=== PATIENT | male | born 1950 | race Caucasian/White ===

== ENCOUNTER → 2019-04-22 09:17 | Outpatient (CLI) | payer MEDICARE, OTHER, SELFPAY ==
[2019-04-22 10:53] LABS: Creatinine Urine Random 122.7 mg/dL
[2019-04-22 10:55] LABS: Microalbumi Creatinin Ratio Ur 5.7 ug/mg CR (<30); Microalbumin Urine Random 0.7 mg/dL (0-1.6)
[2019-04-22 11:05] LABS: Vitamin D 25 Hydroxy (D3) 39.7 ng/mL (30.0-100.0)
[2019-04-22 11:15] LABS: Hemoglobin A1C% w Est Avg Glu 7.8 % (4.0-6.0)
[2019-04-22 11:26] LABS: BUN Creatinine Ratio 17.5 (6-22); Blood Urea Nitrogen 21 mg/dL (9-20); Calcium 9.6 mg/dL (8.4-10.2); Carbon Dioxide 28 mmol/L (22-32); Chloride 103 mmol/L (98-107); Estimated Glomerular Filt Rate > 60.0 mL/min (>60); Glucose 175 mg/dL (80-110); HEMOLYSIS < 15 (0-50); Potassium 4.2 mmol/L (3.4-5.1); Sodium 138 mmol/L (137-145)
[2019-04-22 11:56] LABS: Prostate Specific Antigen Scrn 0.823 ng/mL (0.1-4.0)
== END ==
PROVIDERS: PCP Student in an Organized Health Care Education/Training Program; Visit Provider Student in an Organized Health Care Education/Training Program
DX: E55.9 Vitamin D deficiency, unspecified (principal); E11.9 Type 2 diabetes mellitus without complications; E78.2 Mixed hyperlipidemia; I10 Essential (primary) hypertension; Z12.5 Encounter for screening for malignant neoplasm of prostate
CPT/HCPCS: 36415; 80048; 82043; 82306; 82570; 83036; G0103

== ENCOUNTER → 2019-10-01 09:23 | Outpatient (CLI) | payer MEDICARE, OTHER, SELFPAY ==
[2019-10-01 11:04] LABS: Hemoglobin A1C% w Est Avg Glu 5.4 % (4.0-6.0)
== END ==
PROVIDERS: PCP Student in an Organized Health Care Education/Training Program; Visit Provider Student in an Organized Health Care Education/Training Program
DX: E11.9 Type 2 diabetes mellitus without complications (principal)
CPT/HCPCS: 36415; 83036

== ENCOUNTER → 2020-05-19 15:11 | Outpatient (CLI) | payer MEDICARE, OTHER, SELFPAY ==
[2020-05-19 16:23] LABS: Hemoglobin A1C% w Est Avg Glu 6.1 % (4.0-6.0)
[2020-05-19 16:52] LABS: Creatinine Urine Random 157.8 mg/dL
[2020-05-19 16:56] LABS: Microalbumi Creatinin Ratio Ur 3.8 ug/mg CR (<30); Microalbumin Urine Random < 0.6 mg/dL (0-1.6)
[2020-05-19 16:58] LABS: BUN Creatinine Ratio 20.6 (6-22); Blood Urea Nitrogen 27 mg/dL (9-20); Carbon Dioxide 23 mmol/L (22-32); Chloride 107 mmol/L (98-107); Estimated Glomerular Filt Rate 54.3 mL/min (>60); Glucose 81 mg/dL (80-110); HEMOLYSIS < 15 (0-50); Potassium 4.5 mmol/L (3.4-5.1); Sodium 140 mmol/L (137-145)
== END ==
PROVIDERS: PCP Student in an Organized Health Care Education/Training Program; Referring Provider Student in an Organized Health Care Education/Training Program; Visit Provider Student in an Organized Health Care Education/Training Program
DX: E11.9 Type 2 diabetes mellitus without complications (principal); E66.01 Morbid (severe) obesity due to excess calories; I10 Essential (primary) hypertension
CPT/HCPCS: 36415; 80048; 82043; 82570; 83036

== ENCOUNTER → 2020-06-16 11:15 | Outpatient (CLI) | payer MEDICARE, OTHER, SELFPAY ==
[2020-06-16 13:08] LABS: Blood Urea Nitrogen 23 mg/dL (9-20); Estimated Glomerular Filt Rate 59.5 mL/min (>60)
== END ==
PROVIDERS: PCP Student in an Organized Health Care Education/Training Program; Referring Provider Student in an Organized Health Care Education/Training Program; Visit Provider Student in an Organized Health Care Education/Training Program
DX: N17.9 Acute kidney failure, unspecified (principal)
CPT/HCPCS: 36415; 82565; 84520

== ENCOUNTER → 2020-08-31 10:22 | Outpatient (CLI) | payer MEDICARE, OTHER, SELFPAY ==
[2020-08-31 12:43] LABS: Hemoglobin A1C% w Est Avg Glu 5.7 % (4.0-6.0)
== END ==
PROVIDERS: PCP Student in an Organized Health Care Education/Training Program; Referring Provider Student in an Organized Health Care Education/Training Program; Visit Provider Student in an Organized Health Care Education/Training Program
DX: E11.9 Type 2 diabetes mellitus without complications (principal)
CPT/HCPCS: 36415; 83036

== ENCOUNTER → 2020-12-13 14:02 | Outpatient (CLI) | payer MEDICARE, OTHER, SELFPAY ==
[2020-12-13 15:10] LABS: Hemoglobin A1C% w Est Avg Glu 7.1 % (4.0-6.0)
[2020-12-13 17:04] LABS: BUN Creatinine Ratio 18.3 (6-22); Blood Urea Nitrogen 23 mg/dL (9-20); Cholesterol 173 mg/dL (140-199); Estimated Glomerular Filt Rate 56.7 mL/min (>60); HDL Cholesterol 57 mg/dL (40-60); LDL Cholesterol Calculated 79 mg/dL (<100); Triglycerides 183 mg/dL (35-150)
== END ==
PROVIDERS: PCP Student in an Organized Health Care Education/Training Program; Referring Provider Student in an Organized Health Care Education/Training Program; Visit Provider Student in an Organized Health Care Education/Training Program
DX: E11.9 Type 2 diabetes mellitus without complications (principal); E78.2 Mixed hyperlipidemia; I10 Essential (primary) hypertension; N18.31 Chronic kidney disease, stage 3a
CPT/HCPCS: 36415; 80061; 82565; 83036; 84520

== ENCOUNTER → 2020-12-24 08:43 | Outpatient (CLI) | payer MEDICARE, OTHER, SELFPAY ==
[2020-12-24] MEDS: COVID-19 VACC #1, MRNA(MOD) 100 MCG/0.5 ML VIAL IM (08:50)
== END ==
PROVIDERS: PCP Student in an Organized Health Care Education/Training Program; Visit Provider Internal Medicine
DX: Z23 Encounter for immunization (principal)
CPT/HCPCS: 0011A; 91301

== ENCOUNTER → 2021-01-21 09:02 | Outpatient (CLI) | payer MEDICARE, OTHER, SELFPAY ==
[2021-01-21] MEDS: COVID-19 VACC #2, MRNA(MOD) 100 MCG/0.5 ML VIAL IM (09:04)
== END ==
PROVIDERS: PCP Student in an Organized Health Care Education/Training Program; Visit Provider Internal Medicine
DX: Z23 Encounter for immunization (principal)
CPT/HCPCS: 0012A; 91301

== ENCOUNTER → 2021-03-22 10:45 | Outpatient (CLI) | payer MEDICARE, OTHER, SELFPAY ==
[2021-03-22 12:11] LABS: Hemoglobin A1C% w Est Avg Glu 6.8 % (4.0-6.0)
[2021-03-22 12:33] LABS: BUN Creatinine Ratio 21.1 (6-22); Blood Urea Nitrogen 26 mg/dL (9-20); Estimated Glomerular Filt Rate 58.3 mL/min (>60)
== END ==
PROVIDERS: PCP Student in an Organized Health Care Education/Training Program; Referring Provider Student in an Organized Health Care Education/Training Program; Visit Provider Student in an Organized Health Care Education/Training Program
DX: E11.9 Type 2 diabetes mellitus without complications (principal); N18.31 Chronic kidney disease, stage 3a
CPT/HCPCS: 36415; 82565; 83036; 84520

== ENCOUNTER → 2021-09-23 12:32 | Outpatient (CLI) | payer MEDICARE, OTHER, SELFPAY ==
[2021-09-23 13:14] LABS: BUN Creatinine Ratio 14.5 (6-22); Blood Urea Nitrogen 22 mg/dL (9-20); Estimated Glomerular Filt Rate 45.6 mL/min (>60)
[2021-09-23 13:15] LABS: Hemoglobin A1C% w Est Avg Glu 7.3 % (4.0-6.0)
[2021-09-23 13:46] LABS: Prostate Specific Antigen Scrn 0.913 ng/mL (0.1-4.0); TSH w/ Reflex to FT4 0.08 uIU/mL (0.47-4.68)
[2021-09-23 14:11] LABS: Free T4, Direct Thyroxine 1.57 ng/dL (0.78-2.19)
[2021-09-23 17:30] LABS: Creatinine Urine Random 132.5 mg/dL
[2021-09-23 17:36] LABS: Microalbumin Urine Random 1.6 mg/dL (0-1.6)
== END ==
PROVIDERS: PCP Student in an Organized Health Care Education/Training Program; Referring Provider Student in an Organized Health Care Education/Training Program; Visit Provider Student in an Organized Health Care Education/Training Program
DX: E11.9 Type 2 diabetes mellitus without complications (principal); Z12.5 Encounter for screening for malignant neoplasm of prostate; E03.9 Hypothyroidism, unspecified; N18.31 Chronic kidney disease, stage 3a
CPT/HCPCS: 36415; 82043; 82565; 82570; 83036; 84439; 84443; 84520; G0103

== ENCOUNTER → 2021-11-11 11:57 | Outpatient (CLI) | payer MEDICARE, OTHER, SELFPAY ==
[2021-11-11 14:12] LABS: BUN Creatinine Ratio 14.1 (6-22); Blood Urea Nitrogen 20 mg/dL (9-20); Estimated Glomerular Filt Rate 49.3 mL/min (>60)
[2021-11-11 14:31] LABS: TSH w/ Reflex to FT4 1.41 uIU/mL (0.47-4.68)
[2021-11-14 08:37] LABS: Fecal Immunochemical Test Negative (Negative)
== END ==
PROVIDERS: PCP Student in an Organized Health Care Education/Training Program; Referring Provider Student in an Organized Health Care Education/Training Program; Visit Provider Student in an Organized Health Care Education/Training Program
DX: E03.9 Hypothyroidism, unspecified (principal); N18.31 Chronic kidney disease, stage 3a; Z12.11 Encounter for screening for malignant neoplasm of colon
CPT/HCPCS: 36415; 82274; 82565; 84443; 84520

== ENCOUNTER → 2022-04-10 09:25 | Outpatient (CLI) | payer MEDICARE, OTHER, SELFPAY ==
[2022-04-10 10:59] LABS: Hemoglobin A1C% w Est Avg Glu 7.6 % (4.0-6.0)
== END ==
PROVIDERS: PCP Student in an Organized Health Care Education/Training Program; Referring Provider Student in an Organized Health Care Education/Training Program; Visit Provider Student in an Organized Health Care Education/Training Program
DX: E11.22 Type 2 diabetes mellitus with diabetic chronic kidney disease (principal); N18.31 Chronic kidney disease, stage 3a; Z79.4 Long term (current) use of insulin
CPT/HCPCS: 36415; 83036

== ENCOUNTER → 2022-06-28 08:28 | Outpatient (CLI) | payer MEDICARE, OTHER, SELFPAY ==
[2022-06-28 10:18] LABS: Hemoglobin A1C% w Est Avg Glu 6.8 % (4.0-6.0)
[2022-06-28 10:20] LABS: BUN Creatinine Ratio 18.7 (6-22); Blood Urea Nitrogen 25 mg/dL (9-20); Carbon Dioxide 23 mmol/L (22-32); Chloride 105 mmol/L (98-107); Estimated Glomerular Filt Rate 57 mL/min (>60); Glucose 159 mg/dL (80-110); HEMOLYSIS < 15 (0-50); Potassium 4.2 mmol/L (3.4-5.1); Sodium 136 mmol/L (137-145)
[2022-06-28 15:03] LABS: Creatinine Urine Random 92.5 mg/dL
[2022-06-28 15:08] LABS: Microalbumi Creatinin Ratio Ur 7.5 ug/mg CR (<30); Microalbumin Urine Random 0.7 mg/dL (0-1.6)
== END ==
PROVIDERS: PCP Student in an Organized Health Care Education/Training Program; Referring Provider Student in an Organized Health Care Education/Training Program; Visit Provider Student in an Organized Health Care Education/Training Program
DX: E11.22 Type 2 diabetes mellitus with diabetic chronic kidney disease (principal); E03.9 Hypothyroidism, unspecified; N18.31 Chronic kidney disease, stage 3a; Z79.4 Long term (current) use of insulin
CPT/HCPCS: 36415; 80048; 82043; 82570; 83036; 84443

== ENCOUNTER → 2022-08-24 09:26 | Outpatient (CLI) | payer MEDICARE, OTHER, SELFPAY ==
--- NOTE | 2022-09-12 10:18 | DIAB.MNT ---
Initial Diabetes Medical Nutrition Therapy Assessment Name: Giancarlo Dominguez Date: 08/24/22 Time: 065-8285q Dx: Type II Diabetes Provider: Emily Giancarlo presents for initial visit. States he is mostly here today to learn about nutrition and weight loss to help reduce health issues and potentially medications. Reports goal to reduce BG and lose 30#. Recent HgA1c of 6.8% 06/2022 and improved GFR at 57 ml/min. Not on max dose of Metformin due to diarrhea per report. Diet recall indicates some high fat/pro options (2x chicken thighs). Though he states he is eating much less than he has historically, potentially some room for improvement for weight loss goals. Also reports some irritability when hungry running errands in the car. this may result in eating fast food. H/o using kelly for tracking food intake Diet Recall: 8a: pork chop or sausages or malaysian lui with eggs 12-2p: sandwich and fruit 6-8p: 2 chicken thighs or steak with veggies and corn or peas or salad sn: 2-3x per week ice cream Beverages: water, diet coke Anthropometrics: Ht: 5'10 Wt: 228.4# UBW: reported 224# Physical Activity: Pickle ball 2x per week; walking 60 min 4-5x per week. wanting a plan for indoor exercise for the winter. Self-Monitoring Blood Glucose: checks 2x per week. FBG often 108-120 mg/dl (in goal). Today was 115 mg/dL. No pc readings. Diabetes Medications: 4mg glimepiride Glargine 30u HS Metformin 750mg XR Pertinent Labs: HgA1c 6.8%; GFR 57 ml/min; no new lipids since 2020 in EMR Past Medical History: (This Medical Record has been edited. Action required.) Acne Chicken pox Colon polyps Hearing deficit Kidney stones Measles Plantar warts Vision disorder Nutrition Rx: Plate Method ; CCD 45g/meal Nutrition Diagnosis: - Nutrition and food related knowledge deficit r/t needing info on weight loss and DM specific nutrition recs aeb pt report - Predicted excessive sat fat intake r/t nutrition knowledge deficit aeb diet recall Intervention: This participant was very receptive. Provided appropriate educational handouts. Discussed the following topics: Completed intake assessment. Discussed barriers to care. SMBG: some pc readings especially at lunch Plate Method, impact of macronutrients on blood sugar, meal timing Recommended servings for carbohydrates at meals and snacks Heart health nutrition: sat fat Role of physical activity s/s hypoglycemia Created SMART goals for patient self-care and success. Goals: Keep trail mix in the care Track food intake with kelly Check some pc lunch readings Follow-up: FERCHO FLORES follow-up in 2-3 weeks Padma Vance RDN, [facility] Certified Diabetes Care and Coconut Boiler P: [phone] Thank you for this referral
== END ==
PROVIDERS: PCP Student in an Organized Health Care Education/Training Program; Referring Provider Student in an Organized Health Care Education/Training Program; Visit Provider Student in an Organized Health Care Education/Training Program
DX: E11.9 Type 2 diabetes mellitus without complications (principal); Z79.84 Long term (current) use of oral hypoglycemic drugs; Z79.4 Long term (current) use of insulin; Z71.3 Dietary counseling and surveillance
CPT/HCPCS: 97802

== ENCOUNTER → 2022-09-12 08:54 | Outpatient (CLI) | payer MEDICARE, OTHER, SELFPAY ==
--- NOTE | 2022-09-26 17:15 | DIAB.MNTFU ---
Follow-up Diabetes Medical Nutrition Therapy Assessment Name: Giancarlo Dominguez Date: 09/12/22 Time: -750r Dx: Type II Diabetes Provider: Emily Mondragon present today for follow-up. Reports keeping some trail mix in the car to avoid long periods of not eating, eating out, and/or irritability from potential low BG. states he has started tracking food intake. Edwina indicates 23% pro, 30% CHO and 47% fat. Often choosing higher saturated fat choices for pro contributing to fat intake, ie sausage. Anthropometrics: Ht: 5'10 Wt: 226# reported Last Wt: 228.4# UBW: reported 224# Physical Activity: Pickle ball 1-2x per week; walking 60 min 5x per week. Considering gym for more indoor exercise. Self-Monitoring Blood Glucose: none for review today. Reports BG after lunch today 127mg/dL. Diabetes Medications: 4mg glimepiride Glargine 30u HS Metformin 750mg XR Pertinent Labs: HgA1c 6.8%; GFR 57 ml/min; no new lipids since 2020 in EMR Past Medical History: (This Medical Record has been edited. Action required.) Acne Chicken pox Colon polyps Hearing deficit Kidney stones Measles Plantar warts Vision disorder Nutrition Rx: Plate Method ; CCD 45g/meal Nutrition Diagnosis: - Nutrition and food related knowledge deficit r/t needing info on weight loss and DM specific nutrition recs aeb pt report- improved - Predicted excessive sat fat intake r/t nutrition knowledge deficit aeb diet recall- in progress Intervention: This participant was very receptive. Provided appropriate educational handouts. Discussed the following topics: Plate Method, impact of macronutrients on blood sugar, meal timing, carbohydrate counting, pairing macronutrients and spreading out carbohydrates for better blood glucose management Heart health nutrition: fats, fiber Physical activity plan and progress, varying activity Created SMART goals for patient self-care and success. Goals: Keep trail mix in the car- met Track food intake with edwina- met Check some pc lunch readings - in progress Try resistance exercises 2x per week- new Choose lean proteins more often (poultry/fish)- new try chicken or turkey sausage- new Follow-up: FERCHO FLORES follow-up in 1 month Padma Vance RDN, [facility] Certified Diabetes Care and Garment Looper P: [phone] Thank you for this referral
== END ==
PROVIDERS: PCP Student in an Organized Health Care Education/Training Program; Referring Provider Student in an Organized Health Care Education/Training Program; Visit Provider Student in an Organized Health Care Education/Training Program
DX: E11.9 Type 2 diabetes mellitus without complications (principal); Z71.3 Dietary counseling and surveillance; Z79.84 Long term (current) use of oral hypoglycemic drugs; Z79.4 Long term (current) use of insulin
CPT/HCPCS: 97803

== ENCOUNTER → 2022-10-24 08:54 | Outpatient (CLI) | payer MEDICARE, OTHER, SELFPAY ==
--- NOTE | 2022-10-24 09:47 | DIAB.FU ---
Follow-up Diabetes Education Assessment Name: Giancarlo Dominguez Date: 10/24/22 Time: 90a Dx: Type II Diabetes Provider: Emily Giancarlo presents for follow-up today regarding T2DM. States he has made an effort to reduce sat fat intake. he didn?t like turkey sausage but chicken sausage works. Choosing chicken more often, not fish. Does not prefer fish. Likes shrimp and salmon. Grew up eating mostly meat. Difficult time changing that. Reports drinking more fluids, but admits that 20oz of intake some days may be from diet coke. Increased wt to 228# since . Just restarted tracking food intake. When asked what is going well, he reports less fluctuations in blood sugars and therefore mood. States he could work more on protein portions at dinner (6-8oz). Though diet recall indicates >5 hours between lunch and dinner, indicating likelihood of excessive hunger at dinner. Anthropometrics: Ht: 5'10 Wt: 228# reported Last Wt: 226# reported UBW: reported 224# Physical Activity: going well, walks with a groups of men most days for 60 mins. Plans to go to the gym once weather goes bad. Has gym memebership through insurance. Pickle ball 90 min two days per week. has not started resistance training. Feels current regimen is enough. Self-Monitoring Blood Glucose: Reports FBG continue 117-120s in goal. occasionally takes a mid day number and always <130mg/dl. Diabetes Medications: 4mg glimepiride Glargine 30u HS Metformin 750mg XR Pertinent Labs: HgA1c 6.8%; GFR 57 ml/min; no new lipids since 2020 in EMR Past Medical History: (This Medical Record has been edited. Action required.) Acne Chicken pox Colon polyps Hearing deficit Kidney stones Measles Plantar warts Vision disorder Intervention: This participant was very receptive. Provided appropriate educational handouts. Discussed the following topics: Recent blood sugar results and trends Review of general nutrition recommendations and current intake Fluids recs for CKD and DM Physical activity plan Meal timing Created SMART goals for patient self-care and success. Goals: Try resistance exercises 2x per week- not met Choose lean proteins more often (poultry/fish)- improved try chicken or turkey sausage- met Aim for 4 glasses water (12oz ea) per day + 16.8oz water bottle- new Consider afternoon snack to help reduce dinner portions- new Follow-up: FERCHO FLORES follow-up in 6-7 weeks. Giancarlo would like to meet after the holidays . Padma Vance RDN, [facility] Certified Diabetes Care and Managing Consultant P: [phone] Thank you for this referral
== END ==
PROVIDERS: PCP Student in an Organized Health Care Education/Training Program; Referring Provider Student in an Organized Health Care Education/Training Program; Visit Provider Student in an Organized Health Care Education/Training Program
DX: E11.9 Type 2 diabetes mellitus without complications (principal); Z71.3 Dietary counseling and surveillance; Z79.84 Long term (current) use of oral hypoglycemic drugs; Z79.4 Long term (current) use of insulin
CPT/HCPCS: G0108

== ENCOUNTER → 2022-12-13 08:49 | Outpatient (CLI) | payer MEDICARE, OTHER, SELFPAY ==
--- NOTE | 2022-12-26 07:55 | DIAB.FU ---
Follow-up Diabetes Education Assessment Name: Giancarlo Dominguez Date: 12/13/22 Time: 346-863u Dx: Type II Diabetes Giancarlo presents for follow-up. States he has gained weight over the holiday season. Reports weight of 228#, which is actually the same weight since last visit in September. Diet recall indicates appropriate carb portions but low veggie intake. States when he eats out he chooses salads. At home, limited veggies. Endorses more water intake. Plans to go on cruise with . States he often walks more on vacation. Not too worried about weight gain/ food consumption. Anthropometrics: Ht: 5'10 Wt: 228# reported Physical Activity: 60 min walks 3-4 x per week. Plans to start [employer] in the spring. States walking has improved. use to take him 60 min to complete [place] SnapYeti loop, now 50 mins. Self-Monitoring Blood Glucose: FBG <130mg/dl. No changes reported. States he thinks he is having less swings in BG since keeping snacks in the car. Diabetes Medications: 4mg glimepiride Glargine 30u HS Metformin 750mg XR Pertinent Labs: HgA1c 6.8%; GFR 57 ml/min; no new lipids since 2020 in EMR Past Medical History: (This Medical Record has been edited. Action required.) Acne Chicken pox Colon polyps Hearing deficit Kidney stones Measles Plantar warts Vision disorder Intervention: This participant was very receptive. Provided appropriate educational handouts. Discussed the following topics: Review of general nutrition recommendations and current intake Physical activity plan and progress strategies for eating out Created SMART goals for patient self-care and success. Goals: Aim for 4 glasses water (12oz ea) per day + 16.8oz water bottle- improved/in progress Consider afternoon snack to help reduce dinner portions- not met occupational therapist assistant baby carrots- new Choose salads on cruise- new Continue walking regimen at min- new Follow-up: FERCHO FLORES follow-up in February per pt request Padma Vance RDN, [facility] Certified Diabetes Care and Notching Machine Operator P: [phone] Thank you for this referral
== END ==
PROVIDERS: PCP Student in an Organized Health Care Education/Training Program; Referring Provider Student in an Organized Health Care Education/Training Program; Visit Provider Student in an Organized Health Care Education/Training Program
DX: E11.9 Type 2 diabetes mellitus without complications (principal); Z79.84 Long term (current) use of oral hypoglycemic drugs; Z79.4 Long term (current) use of insulin; Z71.3 Dietary counseling and surveillance
CPT/HCPCS: G0108

== ENCOUNTER → 2023-02-06 10:59 | Outpatient (CLI) | payer MEDICARE, OTHER, SELFPAY ==
[2023-02-06 11:36] LABS: Hemoglobin A1C% w Est Avg Glu 7.7 % (4.0-6.0)
[2023-02-06 11:45] LABS: BUN Creatinine Ratio 14.8 (6-22); Blood Urea Nitrogen 23 mg/dL (9-20); Calcium 9.3 mg/dL (8.4-10.2); Carbon Dioxide 26 mmol/L (22-32); Chloride 106 mmol/L (98-107); Estimated Glomerular Filt Rate 48 mL/min (>60); Glucose 100 mg/dL (80-110); HEMOLYSIS < 15 (0-50); Sodium 139 mmol/L (137-145)
[2023-02-06 12:29] LABS: Hep C Virus Ab w/Reflex Quant NEGATIVE s/c (NEGATIVE)
== END ==
PROVIDERS: PCP Student in an Organized Health Care Education/Training Program; Referring Provider Student in an Organized Health Care Education/Training Program; Visit Provider Student in an Organized Health Care Education/Training Program
DX: E11.9 Type 2 diabetes mellitus without complications (principal); I10 Essential (primary) hypertension; N18.31 Chronic kidney disease, stage 3a; Z11.59 Encounter for screening for other viral diseases
CPT/HCPCS: 36415; 80048; 83036; 86803

== ENCOUNTER → 2023-03-13 08:46 | Outpatient (CLI) | payer MEDICARE, OTHER, SELFPAY ==
--- NOTE | 2023-03-13 10:06 | DIAB.MNTFU ---
Follow-up Diabetes Medical Nutrition Therapy Assessment Name: Giancarlo Dominguez Date: 03/13/23 Time: 9-510a Dx: Type II Diabetes Giancarlo presents for follow-up regarding T2DM. HgA1c increased since last, up to 7.7% from 6.8%. States he feels this is mostly related to 3 week cruise, which he did try to eat more veggies and be active during. Diet recall indicates 70-100g CHO per day with three meals per day. Limited veggies, though has added veggies to breakfast. Endorses weight gain from cruise. Last PCP visit weight 236# Anthropometrics: Ht: 5'10 Wt: 236.25# 01/2023 PCP last wt reported 228# reported Physical Activity: 60 min walks daily with walking group 45-80 min. Pickle ball starting soon. Resistance training 45-60 min twice per week. Self-Monitoring Blood Glucose: Reports checking and ac dinner. All in goal 95-110 mg/dl. Diabetes Medications: 4mg glimepiride Glargine 30u HS Metformin 750mg XR Pertinent Labs: HgA1c 6.8% 06/2022 7.7% 01/2023 Past Medical History: (This Medical Record has been edited. Action required.) Acne Chicken pox Colon polyps Hearing deficit Kidney stones Measles Plantar warts Vision disorder Nutrition Rx: Plate Method; 30-45g CHO per meal Nutrition Diagnosis: Predicted inadequate fiber intake r/t limited veggie intake aeb diet recall Intervention: This participant was very receptive. Provided appropriate educational handouts. Discussed the following topics: Blood sugar review and trends. Impact of food intake on results. Meal planning and carb counting review Strategies to increase veggie intake SMBG and goals Physical activity plan and progress Created SMART goals for patient self-care and success. 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 Due to pt schedule, he would like to follow-up early April. Padma Vance RDN, [facility] Certified Diabetes Care and Hydrochloric Acid Operator P: [phone] Thank you for this referral
== END ==
PROVIDERS: PCP Student in an Organized Health Care Education/Training Program; Referring Provider Student in an Organized Health Care Education/Training Program; Visit Provider Student in an Organized Health Care Education/Training Program
DX: E11.9 Type 2 diabetes mellitus without complications (principal); Z79.84 Long term (current) use of oral hypoglycemic drugs; Z79.4 Long term (current) use of insulin; Z71.3 Dietary counseling and surveillance
CPT/HCPCS: 97803

== ENCOUNTER → 2023-05-02 08:56 | Outpatient (CLI) | payer MEDICARE, OTHER, SELFPAY ==
--- NOTE | 2023-05-17 10:37 | DIAB.MNTFU ---
Follow-up Diabetes Medical Nutrition Therapy Assessment Name: Giancarlo Dominguez Date: 05/02/23 Time: 683-867q Dx: Type II Diabetes Giancarlo presents for Dm follow-up. Reports working on increasing veggie intake. Diet recall indicates mostly low carb options.Limited veggies during the day. Processed meats often for breakfast and lunch. Added carrots as a snack inconsistently. Not adding veggies to eggs as discussed last visit. No PCP visit scheduled since absence of Dr. Diaz. Anthropometrics: Wt: Reported 229#, down 7# since prior to cruise. Physical Activity: pickle ball once per week. 30 min walking most days, biking some days. gym twice per week for resistance training. Usually 1-2 phys activity options per day. Self-Monitoring Blood Glucose: FBG 95-100mg/dl and ac dinner 95-120mg/dl per report. No pc readings. Diabetes Medications: 4mg glimepiride Glargine 30u HS Metformin 750mg XR Pertinent Labs: HgA1c 6.8% 06/2022 7.7% 01/2023 Past Medical History: (This Medical Record has been edited. Action required.) Acne Chicken pox Colon polyps Hearing deficit Kidney stones Measles Plantar warts Vision disorder Nutrition Rx: Plate Method; 30-45g CHO per meal Nutrition Diagnosis: Predicted inadequate fiber intake r/t limited veggie intake aeb diet recall - continue Intervention: This participant was very receptive. Provided appropriate educational handouts. Discussed the following topics: Blood sugar review and trends. value in ac and pc readings to determine trends and meals/snacks Meal planning and easy ways to incorporate more veggies Physical activity plan and progress Created SMART goals for patient self-care and success. Goals: Check a few 1-2 hour pc readings- in progress esthetician makeup artist more baby carrots for snacking- met Keep veggies in eggs- not met Schedule with new PCP - new Add veggies twice per day- new Continue phys activity - new Follow-up: FERCHO FLORES follow-up in Sep due to RD/SANDRA leave. Provided resources for support in the interim prn. Padma Vance, FERCHO, [facility] Certified Diabetes Care and Hand Model P: [phone] Thank you for this referral
== END ==
PROVIDERS: PCP Student in an Organized Health Care Education/Training Program; Referring Provider Student in an Organized Health Care Education/Training Program; Visit Provider Student in an Organized Health Care Education/Training Program
DX: E11.9 Type 2 diabetes mellitus without complications (principal); Z79.84 Long term (current) use of oral hypoglycemic drugs; Z79.4 Long term (current) use of insulin; Z71.3 Dietary counseling and surveillance
CPT/HCPCS: 97803

== ENCOUNTER 2023-06-11 08:17 | Day surgery (SDC) | payer MEDICARE, OTHER, SELFPAY ==
--- NOTE | 2023-06-11 | PATH_ITS ---
[facility] Accession Number: [id number] No. of containers..01 Tissue . 01 Material submitted: . colon - ASCENDING COLON POLYP . 01 Diagnosis: Ascending Colon Polyp, Biopsy: Tubular adenoma. [facility] 06/18/2023 1144 Local . 01 Electronically signed: . Charley Meyer MD, Pathologist NPI- [id number] . 01 Gross description: . The specimen is received in formalin labeled with the patient's name, , and ascending colon polyp consists of a single grande soft tissue fragment measuring 0.5 cm in greatest dimension. Submitted entirely in cassette A1. ([id number]) /MRV 06/14/2023 1842 Local . 01 Pathologist provided ICD-10: D12.2 . 01 CPT . 227999 Performed at: 01 [facility] [address] [place] [address] [id number] MD Jan Estrada MD Phone: [phone]
[2023-06-11 08:32] VITALS: BP 169/80; PULSE 97; RESP 17; TEMP 35.9; O2SAT 98; BMI 33.3
--- NOTE | 2023-06-11 08:54 | PM.HP.1 ---
History of Present Illness History of Present Illness Date Patient Seen: 06/11/23 Time Patient Seen: 08:55 Chief complaint: [facility] [place]arrative: H/o polyps, last scope was 5 years ago. Had a negative Cologard at 4 yr nathalie (due to pandemic). No symptoms. [facility] Medical History Acne Chicken pox Colon polyps Hearing deficit Kidney stones Measles Plantar warts Vision disorder Family History Father No problems noted. Social History household members: spouse Smoking Status: Never smoker alcohol intake: current substance use type: does not use Meds Home Medications and Allergies Home Medications Medication Instructions Recorded Confirmed Type aspirin 81 mg tablet,delayed 81 mg PO DAILY 04/22/19 06/11/23 History release atorvastatin 20 mg tablet See Rx Instructions .Route 06/01/23 06/11/23 Rx .COMPLEX #90 tabs glimepiride 4 mg tablet 4 mg PO DAILY #90 tabs 06/01/23 06/11/23 Rx insulin glargine 100 unit/mL (3 30 unit (0.3 mL) SUBCUT DAILY #15 06/01/23 06/11/23 Rx mL) subcutaneous pen (Basaglar mL KwikPen U-100 Insulin) levothyroxine 125 mcg tablet 125 mcg PO DAILY #90 tabs 06/01/23 06/11/23 Rx losartan 100 mg tablet 100 mg PO DAILY #90 tabs 06/01/23 06/11/23 Rx metformin 750 mg tablet,extended 750 mg PO DAILY #90 tabs 06/01/23 06/11/23 Rx release 24 hr nirmatrelvir 300 mg (150 mg See Rx Instructions PO .COMPLEX if 06/01/23 06/11/23 Rx x2)-ritonavir 100 mg tablet,dose COVID positive #30 ea pack (Paxlovid) pen needle, diabetic, Lantus #30 ea 06/01/23 Rx FlexPen ultra fine short Droplet Pen [place] #100 ea 06/04/23 Rx Allergies Allergy/AdvReac Type Severity Reaction Status Date / Time No Known Drug Allergies Allergy Verified 06/01/23 09:22 Review of Systems Review of Systems ROS: Yes All systems reviewed with the patient and are negative except as otherwise documented Exam Vital Signs (past 8 hours): - 06/11/23 08:32 Temperature 96.6 F L Pulse Rate 97 H Respiratory Rate 17 Blood Pressure 169/80 H Pulse Oximetry 98 Oxygen Delivery Method Room Air Oxygen Delivery Method Room Air Const General: cooperative, healthy appearing and comfortable [facility] Head: normocephalic and atraumatic Eyes General: appearance normal, both eyes and all related structures Sclera: sclerae normal Neck Neck: trachea midline Resp Effort & Inspection: normal respiratory effort and able to speak in complete sentences Cardio Rate: tachycardic Rhythm: regular rhythm GI Inspection: normal to inspection Palpation: soft Skin General: elasticity normal and turgor normal Neuro General: patient alert, patient awake and patient oriented x3 Psych Mental Status: mental status grossly normal Judgment: judgment good Assessment & Plan Assessment & Plan narrative: H/o colon polyps Plan: Colonoscopy with MAC Time Spent With Patient Time with patient: less than 30 minutes
--- NOTE | 2023-06-11 09:28 | PM.OP.COLON ---
Operative Date/Time/Diagnoses Date of procedure: 06/11/23 Time of procedure: 09:28 Pre-op diagnosis: History of colon polyps Post-op diagnosis: same Procedure & Clinicians Study performed: Colonoscopy with cold snare polypectomy under MAC Same procedure as scheduled: Yes Indications: History of colon polyps Surgeon: Nereida Ma Procedure Notes Procedure in detail: Preop diagnosis: History of colon polyps Postop diagnosis: Same Operative procedure: Colonoscopy with cold snare polypectomy under MAC Surgeon: Flaca Ma MD Findings: Single 5 mm polyp in the ascending colon, no diverticulosis Procedure: Patient placed in lateral position. Rectal exam performed showing normal tone no masses. Colonoscope inserted into the rectum and advanced to ileocecal valve with minimal difficulty. Insufflation and extraction of the scope and the above findings. Retroflex was included in the rectum. Impression: Single polyp in the ascending colon taken with a cold snare. Plan: Repeat colonoscopy in 5 years unless otherwise indicated by change in clinical condition Findings: polyp(s) Specimen(s): other (5 mm colon polyp in the ascending colon) Complications: none Post-procedure Recommendations: Colonoscopy in 5 years Follow up: as needed Disposition: PACU
[2023-06-11 09:30] VITALS: BP 130/69; PULSE 58; RESP 16; TEMP 36.2; O2SAT 96
[2023-06-11 09:37] VITALS: BP 129/68; PULSE 55; RESP 12; O2SAT 97
[2023-06-11 09:40] VITALS: BP 120/67; PULSE 55; RESP 16; O2SAT 98
[2023-06-11 09:45] VITALS: BP 119/66; PULSE 60; RESP 17; TEMP 36.4; O2SAT 98
== END 2023-06-11 10:05 | disposition home or self-care (01) ==
PROVIDERS: PCP Pediatrics; Referring Provider Surgery; Visit Provider Surgery
PROC: 0DJD8ZZ Inspection of Lower Intestinal Tract, Via Natural or Artificial Opening Endoscopic (ICD-10-PCS; CPT 45378; principal; 2023-06-11 09:30)
DX: K63.5 Polyp of colon (principal); Z86.010 Personal history of colon polyps
CPT/HCPCS: 45385; 82962; J2704

== ENCOUNTER → 2023-09-07 08:34 | Outpatient (CLI) | payer MEDICARE, OTHER, SELFPAY ==
[2023-09-07 10:05] LABS: Hematocrit 46.2 % (41-53); Hemoglobin 15.7 g/dL (13.5-17.5); Mean Corpuscular HGB Conc 34.1 % (30-36); Mean Corpuscular Hemoglobin 28.4 PG (26-34); Mean Corpuscular Volume 83.2 fL (80-100); Platelet Count 211 X10^3/uL (150-400); Red Blood Cell Count 5.55 X10^6/uL (4.5-5.9); Red Cell Distribution Width 13.9 % (11.6-14.8); White Blood Cell Count 5.8 X10^3/uL (4.5-11.0)
[2023-09-07 10:20] LABS: Hemoglobin A1C% w Est Avg Glu 8.1 % (4.0-6.0)
[2023-09-07 10:37] LABS: HEMOLYSIS < 15 (0-50)
[2023-09-07 10:47] LABS: Creatinine Urine Random 154.3 mg/dL
[2023-09-07 10:49] LABS: Alanine Aminotransferase 35 IU/L (<50); Albumin 4.1 g/dL (3.5-5.0); Albumin Globulin Ratio 1.4 (1.0-2.8); Alkaline Phosphatase 60 U/L (38-126); Aspartate Aminotransferase 25 IU/L (17-59); BUN Creatinine Ratio 14.7 (6-22); Bilirubin Total 0.4 mg/dL (0.2-1.3); Blood Urea Nitrogen 22 mg/dL (9-20); Calcium 9.7 mg/dL (8.4-10.2); Carbon Dioxide 29 mmol/L (22-32); Chloride 101 mmol/L (98-107); Cholesterol 183 mg/dL (140-199); Estimated Glomerular Filt Rate 49 mL/min (>60); Globulin 2.9 g/dL (1.7-4.1); Glucose 217 mg/dL (80-110); HDL Cholesterol 52 mg/dL (40-60); LDL Cholesterol Calculated 101 mg/dL (<100); Sodium 139 mmol/L (137-145); Triglycerides 149 mg/dL (35-150)
[2023-09-07 10:50] LABS: Microalbumi Creatinin Ratio Ur 12.9 ug/mg CR (<30)
[2023-09-07 11:14] LABS: TSH w/ Reflex to FT4 5.41 uIU/mL (0.47-4.68)
[2023-09-07 11:42] LABS: Free T4, Direct Thyroxine 1.29 ng/dL (0.78-2.19)
[2023-09-09 08:29] LABS: Calcium 9.7 mg/dL (8.6-10.2); Parathyroid Hormone, Intact 34 pg/mL (15-65)
[2023-09-11 16:18] LABS: Prostate Specific Antigen 1.33 ng/mL (0.10-4.00)
== END ==
PROVIDERS: PCP Internal Medicine; Referring Provider Internal Medicine; Visit Provider Internal Medicine
DX: E78.2 Mixed hyperlipidemia (principal); E11.22 Type 2 diabetes mellitus with diabetic chronic kidney disease; N40.0 Benign prostatic hyperplasia without lower urinary tract symptoms; N18.30 Chronic kidney disease, stage 3 unspecified; E03.9 Hypothyroidism, unspecified; N18.31 Chronic kidney disease, stage 3a; Z79.4 Long term (current) use of insulin
CPT/HCPCS: 36415; 80053; 80061; 82043; 82310; 82570; 83036; 83970; 84153; 84439; 84443; 85027

== ENCOUNTER → 2023-10-31 08:55 | Outpatient (CLI) | payer MEDICARE, OTHER, SELFPAY ==
--- NOTE | 2023-10-31 17:02 | DIAB.MNTFU ---
Follow-up Diabetes Medical Nutrition Therapy Assessment Name: Giancarlo Dominguez Jr Date: 10/31/23 Time: 058-828k Dx: Type II Diabetes Giancarlo presents for DM follow-up. Now seeing Pati since Emily left. Reports three meals per day. Low fruit and veggie intake. 50/50 water to diet coke intake reported. Started on Jardiance. Noticed inc in urination, though improved more recently, q 4-5 hours. Endorses at least 2L fluids, but not always water. Endorses reduced appetite recently and more satiety. Smaller portions. Diet recall indicates carb portions adequate most meals. Veggies at dinner. HgA1c increased in August. Anthropometrics: Wt: 221# reported -- down form 229# last RD visit reported Physical Activity: 45-60min with walking group daily. No gym anymore. No pickle ball due to weather. Self-Monitoring Blood Glucose: Only checking FBG, which is in goal 110-120mg/dl. Concerns due to h/o having in range FBG with high HgA1c indicating elevated numbers later in the day. Diabetes Medications: 4mg glimepiride (D/c) Glargine 30u HS Metformin 750mg XR Jardiance 10mg Pertinent Labs: HgA1c 6.8% 06/2022 7.7% 01/2023 8.1% 08/2023 Past Medical History: (Last Updated 09/06/23 @ 02:22 by Trey Krueger MD) Acne Actinic keratosis Chicken pox Colon polyps Hearing deficit Kidney stones Measles Mixed hyperlipidemia Obesity (BMI 30.0-34.9) Plantar warts Type 2 diabetes mellitus with stage 3 chronic kidney disease, with long-term current use of insulin Vision disorder Nutrition Rx: Plate Method; 30-45g CHO per meal Nutrition Diagnosis: Predicted inadequate fiber intake r/t limited veggie intake aeb diet recall - continue Predicted inadequate fluid intake r/t choosing diet coke more freq over water aeb diet recall- new Intervention: This participant was very receptive. Provided appropriate educational handouts. Discussed the following topics: Blood sugar review and trends. Medication management: importance of water hydration with SGLT2i, SE and action of Jardiance Strategies for increasing veggies Physical activity plan and progress Created SMART goals for patient self-care and success. Goals: Schedule with new PCP - met Add veggies twice per day- in progress Continue phys activity - not met Check BG later in the day, dee postprandial- new Choose water more freq over diet coke- new Follow-up: FERCHO FLORES follow-up in 2 months. Encouraged Giancarlo to call for sooner f/u prn. Overall, diet and exercise is going well. As long as pc readings are going well, predict improved HgA1c next lab review. Padma Vance RDN, [facility] Certified Diabetes Care and Condominium Association Manager P: [phone] Thank you for this referral
== END ==
PROVIDERS: PCP Student in an Organized Health Care Education/Training Program; Referring Provider Student in an Organized Health Care Education/Training Program; Visit Provider Student in an Organized Health Care Education/Training Program
DX: E11.9 Type 2 diabetes mellitus without complications (principal); Z79.84 Long term (current) use of oral hypoglycemic drugs; Z79.4 Long term (current) use of insulin; Z71.3 Dietary counseling and surveillance
CPT/HCPCS: 97803

== ENCOUNTER → 2023-12-11 09:18 | Outpatient (CLI) | payer MEDICARE, OTHER, SELFPAY ==
[2023-12-11 10:05] LABS: Hemoglobin A1C% w Est Avg Glu 9.1 % (4.0-6.0)
[2023-12-11 10:19] LABS: BUN Creatinine Ratio 22.6 (6-22); Blood Urea Nitrogen 30 mg/dL (9-20); Calcium 9.2 mg/dL (8.4-10.2); Carbon Dioxide 22 mmol/L (22-32); Chloride 104 mmol/L (98-107); Estimated Glomerular Filt Rate 57 mL/min (>60); Glucose 277 mg/dL (80-110); HEMOLYSIS 32 (0-50); Potassium 4.2 mmol/L (3.4-5.1); Sodium 135 mmol/L (137-145)
[2023-12-11 11:06] LABS: Vitamin B12 409 pg/mL (239-931)
[2023-12-11 11:10] LABS: TSH w/ Reflex to FT4 4.38 uIU/mL (0.47-4.68)
== END ==
PROVIDERS: PCP Internal Medicine; Referring Provider Internal Medicine; Visit Provider Internal Medicine
DX: E11.22 Type 2 diabetes mellitus with diabetic chronic kidney disease (principal); N18.30 Chronic kidney disease, stage 3 unspecified; Z79.4 Long term (current) use of insulin; E03.9 Hypothyroidism, unspecified; N18.31 Chronic kidney disease, stage 3a; E53.8 Deficiency of other specified B group vitamins
CPT/HCPCS: 36415; 80048; 82607; 83036; 84443

== ENCOUNTER → 2024-01-01 13:47 | Outpatient (CLI) | payer MEDICARE, OTHER, SELFPAY ==
--- NOTE | 2024-01-15 09:46 | DIAB.FU ---
Follow-up Diabetes Education Assessment Name: Giancarlo Dominguez Jr Date: 01/01/24 Time: 2-230 Dx: Type II Diabetes Giancarlo presents for Dm follow-up with increase to hgA1c, 9.1% (11/2023) up from 8.1% (08/2023). Predicting elevations postprandial since he reports FBG under 140mg/dl. Denies any changes to diet though, ie three meals per day, mostly low carb. Did stop gym since August due to changes in the instructor. Reports urination frequency q 2.5-3 hours during the day and q 4-5 hours overnight. on Jardiance and Metformin. Diet recall: B: eggs, turkey sausage, half bagel or toast L: hot dog with tortilla and cheese D: chicken and veggie snacks: sometimes carrots or apple slices Beverages: 40-50oz water, 30-40oz diet soda Physical Activity: 45-60 min walking group 5 days per week. pickle ball on nice weather days. Self-Monitoring Blood Glucose: Inconsistent FBG readings 120-140mg/dl reported. Diabetes Medications: 4mg glimepiride (D/c) Glargine 30u HS Metformin 750mg XR Jardiance 10mg Pertinent Labs: HgA1c 6.8% 06/2022 7.7% 01/2023 8.1% 08/2023 9.1% 11/2023 Past Medical History: (Last Reviewed 12/11/23 @ 05:32 by Trey Krueger MD) Acne Actinic keratosis Chicken pox Colon polyps Hearing deficit Kidney stones Measles Mixed hyperlipidemia Obesity (BMI 30.0-34.9) Plantar warts Type 2 diabetes mellitus with stage 3 chronic kidney disease, with long-term current use of insulin Vision disorder Intervention: This participant was very receptive. Provided appropriate educational handouts. Discussed the following topics: Recent blood sugar Recent hgA1c and implications SMBG: checking some BG later in the day Medication management: Action of Jardiance and impact on hydration and freq urination Review of general nutrition recommendations and current intake Physical activity plan and impact on blood sugars Barriers to attending gym Created SMART goals for patient self-care and success. Goals: Check BG later in the day, dee postprandial- not met Choose water more freq over diet coke- not met Consider resistance training and/or return to gym- new Check some ac/pc/hs BG and bring next visit- new Follow-up: [facility]ERCHO FLORES follow-up in 2-3 weeks Padma Vance RDN, [facility] Certified Diabetes Care and Pond Scaler P: [phone] Thank you for this referral
== END ==
LOC: DIET 13:47
PROVIDERS: PCP Internal Medicine; Referring Provider Internal Medicine; Visit Provider Internal Medicine
DX: E11.9 Type 2 diabetes mellitus without complications (principal); Z79.84 Long term (current) use of oral hypoglycemic drugs; Z79.4 Long term (current) use of insulin; Z71.3 Dietary counseling and surveillance
CPT/HCPCS: G0108

== ENCOUNTER → 2024-01-24 10:38 | Outpatient (CLI) | payer MEDICARE, OTHER, SELFPAY ==
--- NOTE | 2024-01-25 15:07 | DIAB.MNTFU ---
Follow-up Diabetes Medical Nutrition Therapy Assessment Name: Giancarlo Dominguez Jr Date: 01/24/24 Time: 11a-12p Dx: Type II Diabetes Giancarlo presents for follow-up DM visit. Reports improved frequent urination. Has been watching food portions more closely. Eating more carrots for veggies at dinner. Diet recall pretty similar to previous visits. Could reduce carbs at some lunches ie tortilla with chips and hot dog. Somewhat open to low carb option. Might benefit form CGM due to h/o elevated hgA1c and already taking glargine BID. Anthropometrics: Ht: 69.5 Wt: 217# reported Weight history: Down from previous 225-219# Physical Activity: 45-60 min walks 4-5 x per week. Considering gym with . Self-Monitoring Blood Glucose: brought log without dates. Some elevated FBG. A couple elevations later in the day. Date Pre Post Pre Post Pre Post HS 142 148 102 201 154 108 114 129 171 170 173 129 175 126 155 Diabetes Medications: Glargine 30u HS Metformin 750mg XR Jardiance 10mg Pertinent Labs: HgA1c 6.8% 06/2022 7.7% 01/2023 8.1% 08/2023 9.1% 11/2023 Past Medical History: (Last Reviewed 12/11/23 @ 05:32 by Trey Krueger MD) Acne Actinic keratosis Chicken pox Colon polyps Hearing deficit Kidney stones Measles Mixed hyperlipidemia Obesity (BMI 30.0-34.9) Plantar warts Type 2 diabetes mellitus with stage 3 chronic kidney disease, with long-term current use of insulin Vision disorder Nutrition Rx: Plate Method; 30-45g CHO per meal Nutrition Diagnosis: Predicted inadequate fiber intake r/t limited veggie intake aeb diet recall - improved/in progress Predicted inadequate fluid intake r/t choosing diet coke more freq over water aeb diet recall- not discussed today Intervention: This participant was very receptive. Provided appropriate educational handouts. Discussed the following topics: Blood sugar review and trends. Impact of food intake on results. Medication review Meal planning and low carb options Encouraged more veggies during the day Physical activity plan and progress CGM options and self placement with direction: [facility] Created SMART goals for patient self-care and success. Goals: Consider resistance training and/or return to gym- in progress Check some ac/pc/hs BG and bring next visit- met Consider trying low cho tortillas- new Trial lisset x 14 days- new Look into gym- new Follow-up: FERCHO FLORES follow-up in 2-3 weeks Padma Vance RDN, [facility] Certified Diabetes Care and Lodging House Keeper P: [phone] Thank you for this referral
== END ==
LOC: DIET 10:39
PROVIDERS: PCP Internal Medicine; Referring Provider Internal Medicine; Visit Provider Internal Medicine
DX: E11.9 Type 2 diabetes mellitus without complications (principal); Z79.84 Long term (current) use of oral hypoglycemic drugs; Z79.4 Long term (current) use of insulin; Z71.3 Dietary counseling and surveillance
CPT/HCPCS: 97803

== ENCOUNTER → 2024-02-13 13:37 | Outpatient (CLI) | payer MEDICARE, OTHER, SELFPAY ==
--- NOTE | 2024-02-13 15:00 | DIAB.MNTFU ---
Follow-up Diabetes Medical Nutrition Therapy Assessment Name: Giancarlo Dominguez Jr Date: 02/13/24 Time: 2-245p Dx: Type II Diabetes Giancarlo presents for Dm follow-up after wearing CGM x 14 days. Reports noticing elevations after certain foods, ie turkey sandwich with chips. Interested in wearing CGM. RD will coordinate with PCP. Continues to be active. Has incorporated more veggies recently. Per diet recall, will sometimes have HS snack right after dinner, ie ice cream. This seems to cause hyperglycemia per CGM reports. May benefit from slight increase in HS insulin due to waking >130mg/dl on most mornings. Fluids improved with 50oz water per day + diet coke BID. Decided not to purchase low CHO tortillas due to cost. Diet Recall: : bagel 1/2-1, chicken sausage, eggs, +/- small orange 1-2p: hot dog with cheese and tortilla, +/- fruit 5-9p: meatballs with rice, veggies OR chicken and veggies, OR pizza x 2-3 slices HS snack: ice cream Lary: 50oz water, 32oz diet coke Anthropometrics: Ht: 5'9.5 Wt: 216# reported Physical Activity: Continues walking group 4-5 days per week for 45-60 min. Reports increased walking during recent [place] trip. Self-Monitoring Blood Glucose: Overall, well managed BG with time in range over 75%. Some elevations, mostly after dinner likely r/t higher carb HS snack immediately after dinner. Some FBG >130mg/dl 14 day TIR: 1% very high 19% high 80% in range 0% low Avg glucose: 148mg/dl GMI: 6.9% Glucose variablity: 25.6% Diabetes Medications: Glargine 30u HS Metformin 750mg XR Jardiance 10mg Pertinent Labs: HgA1c 6.8% 06/2022 7.7% 01/2023 8.1% 08/2023 9.1% 11/2023 Past Medical History: (Last Reviewed 12/11/23 @ 05:32 by Trey Krueger MD) Acne Actinic keratosis Chicken pox Colon polyps Hearing deficit Kidney stones Measles Mixed hyperlipidemia Obesity (BMI 30.0-34.9) Plantar warts Type 2 diabetes mellitus with stage 3 chronic kidney disease, with long-term current use of insulin Vision disorder Nutrition Rx: Plate Method; 30-45g CHO per meal Nutrition Diagnosis: Predicted inadequate fluid intake r/t choosing diet coke more freq over water aeb diet recall- improved Excessive CHO intake r/t nutrition knowledge deficit in meal/snack timing aeb diet recall- new Intervention: This participant was very receptive. Provided appropriate educational handouts. Discussed the following topics: Blood sugar review and trends. Impact of food intake on results. Meal/snack timing for improved BG Veggie intake progress Potential for slight increase in HS insulin for better FBG CGM process with ADS Created SMART goals for patient self-care and success. Goals: Consider trying low cho tortillas- met Trial lisset x 14 days- met Look into gym- not met Call ADS in one week to check on CGM progress- new Keep 3 hours between dinner and HS snack- new Follow-up: FERCHO FLORES follow-up after next PCP visit. Offered a sooner visit, though pt would like to f/u in March. If next hgA1c and BG improve, may consider moving next visit to 3 mo f/u. Padma Vance RDN, [facility] Certified Diabetes Care and Courseware Developer P: [phone] Thank you for this referral
== END ==
PROVIDERS: PCP Internal Medicine; Referring Provider Internal Medicine; Visit Provider Internal Medicine
DX: E11.9 Type 2 diabetes mellitus without complications (principal); Z79.84 Long term (current) use of oral hypoglycemic drugs; Z79.4 Long term (current) use of insulin; Z71.3 Dietary counseling and surveillance
CPT/HCPCS: 97803

== ENCOUNTER → 2024-03-13 09:19 | Outpatient (CLI) | payer MEDICARE, OTHER, SELFPAY ==
[2024-03-13 11:16] LABS: BUN Creatinine Ratio 16.1 (6-22); Blood Urea Nitrogen 25 mg/dL (9-20); Calcium 9.5 mg/dL (8.4-10.2); Carbon Dioxide 25 mmol/L (22-32); Chloride 107 mmol/L (98-107); Estimated Glomerular Filt Rate 47 mL/min (>60); Glucose 177 mg/dL (80-110); HEMOLYSIS < 15 (0-50); Potassium 4.4 mmol/L (3.4-5.1); Sodium 137 mmol/L (137-145)
[2024-03-13 13:16] LABS: Hemoglobin A1C% w Est Avg Glu 8.9 % (4.0-6.0)
== END ==
PROVIDERS: PCP Internal Medicine; Referring Provider Internal Medicine; Visit Provider Internal Medicine
DX: E11.22 Type 2 diabetes mellitus with diabetic chronic kidney disease (principal); N18.31 Chronic kidney disease, stage 3a; Z79.4 Long term (current) use of insulin
CPT/HCPCS: 36415; 80048; 83036

== ENCOUNTER → 2024-04-10 12:47 | Outpatient (CLI) | payer MEDICARE, OTHER, SELFPAY ==
--- NOTE | 2024-04-10 13:53 | DIAB.FU ---
Follow-up Diabetes Education Assessment Name: Giancarlo Dominguez Jr Date: 04/10/24 Time: 1-130p Dx: Type II Diabetes HgA1c continues to be elevated, though slightly improved. Giancarlo expresses frustrations today with limited change in hgA1c despite weight loss and other health conditions stable/improving. States he expects numbers to generally stay the same if he is doing the same thing each day. Denies any changes to activity or diet. Has not received CGM as of yet. Wants to restart this process. PCP message to pt indicates plan of CGM and monitor until 6 month f/u in Aug. Physical Activity: Continues walking group 4-5 days per week for 45-60 min. Self-Monitoring Blood Glucose: No CGM. Denies changes to BG readings. January TIR: 14 day TIR: 1% very high 19% high 80% in range 0% low Avg glucose: 148mg/dl GMI: 6.9% Glucose variablity: 25.6% Diabetes Medications: Glargine 30u HS Metformin 750mg XR Jardiance 10mg Pertinent Labs: HgA1c 6.8% 06/2022 7.7% 01/2023 8.1% 08/2023 9.1% 11/2023 Pertinent Labs: HgA1c 6.8% 06/2022 7.7% 01/2023 8.1% 08/2023 9.1% 11/2023 8.9% 02/2024 Past Medical History: (Last Reviewed 03/13/24 @ 06:16 by Trey Krueger MD) Acne Actinic keratosis Chicken pox Colon polyps Hearing deficit Kidney stones Measles Mixed hyperlipidemia Obesity (BMI 30.0-34.9) Plantar warts Type 2 diabetes mellitus with stage 3 chronic kidney disease, with long-term current use of insulin Vision disorder Intervention: This participant was very receptive. Provided appropriate educational handouts. Discussed the following topics: Discussed how many factors impact BG, even though we do not control Reviewed potential for med adjustments if diet and exercise does not improve BG Reviewed benefit and process for CGM Created SMART goals for patient self-care and success. Goals: Call ADS in one week regarding CGM rx Call me if any issue with rx or placement of CGM Follow-up: FERCHO CDC[facility] follow-up in 3-[address] restart ADS forms with PCP office for FSL3 acquisition. Padma Vance RDN, [facility] Certified Diabetes Care and Landscape Architect And Planner P: [phone] Thank you for this referral
== END ==
PROVIDERS: PCP Internal Medicine; Referring Provider Internal Medicine
DX: E11.9 Type 2 diabetes mellitus without complications (principal); Z79.84 Long term (current) use of oral hypoglycemic drugs; Z79.4 Long term (current) use of insulin; Z71.3 Dietary counseling and surveillance
CPT/HCPCS: G0108

== ENCOUNTER → 2024-12-04 08:02 | Outpatient (CLI) | payer MEDICARE, OTHER, SELFPAY ==
[2024-12-04 08:47] LABS: Hemoglobin A1C% w Est Avg Glu 7.2 % (4.0-6.0)
[2024-12-04 08:50] LABS: HEMOLYSIS < 15 (0-50)
[2024-12-04 08:56] LABS: Aspartate Aminotransferase 27 IU/L (17-59); BUN Creatinine Ratio 16.4 (6-22); Blood Urea Nitrogen 26 mg/dL (9-20); Calcium 9.7 mg/dL (8.4-10.2); Carbon Dioxide 26 mmol/L (22-32); Chloride 106 mmol/L (98-107); Cholesterol 222 mg/dL (140-199); Estimated Glomerular Filt Rate 46 mL/min (>60); Glucose 116 mg/dL (80-110); HDL Cholesterol 62 mg/dL (40-60); LDL Cholesterol Calculated 143 mg/dL (<100); Sodium 138 mmol/L (137-145); Triglycerides 87 mg/dL (35-150)
[2024-12-04 09:14] LABS: Creatinine Urine Random 115.24 mg/dL
[2024-12-04 09:25] LABS: Prostate Specific Antigen 1.63 ng/mL (0.10-4.00); TSH w/ Reflex to FT4 4.01 uIU/mL (0.47-4.68)
== END ==
PROVIDERS: PCP Internal Medicine; Referring Provider Internal Medicine; Visit Provider Internal Medicine
DX: E11.22 Type 2 diabetes mellitus with diabetic chronic kidney disease (principal); N18.31 Chronic kidney disease, stage 3a; N40.1 Benign prostatic hyperplasia with lower urinary tract symptoms; E03.9 Hypothyroidism, unspecified; Z79.4 Long term (current) use of insulin
CPT/HCPCS: 36415; 80048; 80061; 82043; 82570; 83036; 84153; 84443; 84450

== ENCOUNTER → 2024-12-10 09:41 | Outpatient (CLI) | payer MEDICARE, OTHER, SELFPAY ==
--- NOTE | 2024-12-10 10:25 | DIAB.MNTFU ---
Follow-up Diabetes Medical Nutrition Therapy Assessment Name: Giancarlo Dominguez Jr Date: 12/10/23 Time: 1005-11a Dx: Type II Diabetes Giancarlo presents fro DM follow-up. Wearing CGM consistently. Improved hgA1c of 7.2%. Less ice cream in the evening lately. Some higher carb itnake Diet Recall: 0a: 1/2-1 bagel, 3 chx sausage and 2 eggs +/- mandarin orange 12-1p: hot dog cheese, tortilla OR turkey sandwich and handful of potato chips +/- mandarin orange 6-630p: turkey breast, cheese, mckinnon sandwich and a few chips OR chicken, veggie OR BLT sandwich OR Pizza x 2 sn: nothing or cookies water diet coke Endorses hydration with light urine color and adequate water intake reported. States there was some confusion about his insulin coverage and insurance. Reports [facility] asked him to switch to 70/30, which is not a comparable insulin to his long acting. After contacting his insurance he reports they will allow an exemption but PCP office needs to fill out paperwork. He asked this RD to message provider group regarding this, done. Physical Activity: Continues walking group most days per week for 45-60 min. Self-Monitoring Blood Glucose: Overall, good time in range and meeting ADA goal. Some elevations after lunch or dinner. Also, some elevations half the week at 2a after waking to urinate. Today TIR: 14 day TIR: 2% very high 18% high 80% in range 0% low Avg glucose: 147mg/dl GMI: 6.8% Glucose variablity: 27.6% January TIR: 14 day TIR: 1% very high 19% high 80% in range 0% low Avg glucose: 148mg/dl GMI: 6.9% Glucose variablity: 25.6% Diabetes Medications: Glargine 30u HS Metformin 750mg XR Jardiance 10mg Pertinent Labs: HgA1c 6.8% 06/2022 7.7% 01/2023 8.1% 08/2023 9.1% 11/2023 Pertinent Labs: HgA1c 6.8% 06/2022 7.7% 01/2023 8.1% 08/2023 9.1% 11/2023 8.9% 02/2024 Past Medical History: (Last Reviewed 12/03/24 @ 15:51 by Trey Krueger MD) Acne Actinic keratosis Chicken pox Colon polyps Hearing deficit Kidney stones Measles Mixed hyperlipidemia Obesity (BMI 30.0-34.9) Plantar warts Type 2 diabetes mellitus with stage 3 chronic kidney disease, with long-term current use of insulin Vision disorder Intervention: This participant was very receptive. Provided appropriate educational handouts. Discussed the following topics: CHO recs with types of bread and added chips Label reading for total carbs Interrupted sleep and increased BG Review of BG, trends, and goals Different actions of insulins Goal for HgA1c and TIR CHO portion recs Created SMART goals for patient self-care and success. Goals: check bread labels for 15g CHO or less Try sourdough rounds Keep CHO at dinner to 1c or less Follow-up: FERCHO FLORES follow-up in 4-6 weeks. Would rec that Giancarlo continue on his long acting insulin vs switching to 70/30. He is currently not amenable to BID injections and may suffer low BG in the morning with a 70/30 regimen BID. Current regimen is mostly working well, and may improve with reduced CHO at lunch/dinner. If meal time injections are warranted in the future 70/30 may be reconsidered. Padma Vance RDN, [facility] Certified Diabetes Care and Specialty Person P: [phone] Thank you for this referral
== END ==
PROVIDERS: PCP Internal Medicine; Referring Provider Internal Medicine
DX: E11.22 Type 2 diabetes mellitus with diabetic chronic kidney disease (principal); N18.31 Chronic kidney disease, stage 3a; Z71.3 Dietary counseling and surveillance; Z79.84 Long term (current) use of oral hypoglycemic drugs; Z79.4 Long term (current) use of insulin
CPT/HCPCS: 97803

== ENCOUNTER → 2025-01-20 10:41 | Outpatient (CLI) | payer MEDICARE, OTHER, SELFPAY ==
--- NOTE | 2025-01-20 11:07 | DIAB.FU ---
Follow-up Diabetes Education Assessment Name: Giancarlo Dominguez Jr Date: 01/20/25 Time: Dx: Type II Diabetes Giancarlo presents fro DM follow-up. Changed to Toujeo 300 (no longer on u100 insulin) per report. States he started on 20u vs his usual 30u to avoid hypoglycemia. Found lower carb sourdough bread, did not like the rounds. Keeping carbs to about 1c at meals most times. Anticipates the improved BG with the lower carb portions. Looking at carb amts for meals now. Noticed reduced ice cream has also improved BG results. UTD eye appt UTD dental checking feet daily rotating injection sites Going to [facility], anticipates a lot of walking. No low BG concerns at this time, though some potential concerns if activity increases Physical Activity: Continues walking group most days per week for 45-60 min. Self-Monitoring Blood Glucose: Great time in range without any lows. Today TIR: 14 day TIR: 0% very high 7% high 93% in range 0% low Avg glucose: 139mg/dl GMI: 6.6% Glucose variability: 20% Last 14 day TIR: 2% very high 18% high 80% in range 0% low Avg glucose: 147mg/dl GMI: 6.8% Glucose variability: 27.6% Diabetes Medications: Glargine (Toujeo 300) 20u HS Metformin 750mg XR Jardiance 10mg Pertinent Labs: HgA1c 6.8% 06/2022 7.7% 01/2023 8.1% 08/2023 9.1% 11/2023 8.9% 02/2024 7.2% 11/2024 Past Medical History: (Last Reviewed 12/03/24 @ 15:51 by Trey Krueger MD) Acne Actinic keratosis Chicken pox Colon polyps Hearing deficit Kidney stones Measles Mixed hyperlipidemia Obesity (BMI 30.0-34.9) Plantar warts Type 2 diabetes mellitus with stage 3 chronic kidney disease, with long-term current use of insulin Vision disorder Intervention: This participant was very receptive. Provided appropriate educational handouts. Discussed the following topics: Diet changes and impact on BG BG results and trends Insulin concentration and dosing Rule of 15 review Insulin storage CGM and BG on vacation Created SMART goals for patient self-care and success. Goals: check bread labels for 15g CHO or less- met Try sourdough rounds- met Keep CHO at dinner to 1c or less - met Keep glucose tabs on you during vacation as a precaution- new Follow-up: FERCHO FLORES follow-up in 3-6 months or sooner prn. Padma Vance, FERCHO, [facility] Certified Diabetes Care and Body Coverer P: [phone] Thank you for this referral
== END ==
PROVIDERS: PCP Internal Medicine; Referring Provider Internal Medicine
DX: E11.9 Type 2 diabetes mellitus without complications (principal); Z79.4 Long term (current) use of insulin; Z79.85 Long-term (current) use of injectable non-insulin antidiabetic drugs; Z71.3 Dietary counseling and surveillance
CPT/HCPCS: G0108

== ENCOUNTER → 2025-05-12 13:00 | Outpatient (CLI) | payer MEDICARE, OTHER, SELFPAY ==
--- NOTE | 2025-05-12 13:07 | DIAB.MNTFU ---
Follow-up Diabetes Medical Nutrition Therapy Assessment Name: Giancarlo Dominguez Jr Date: 05/12/25 Time: 105-145p Dx: Type II Diabetes Giancarlo presents fro DM follow-up. Has had some trouble with insurance determining insulin type that is covered. Ended up switching from Toujeo to Semglee. Just returned from [place] trip. Tried to practice moderation and chose veggies and fruit. Needed updated rx for upgraded FSL sensor. RD messaged PCP workgroup. Diet Recall: 730-8a: chicken sausage, 1/2-1 bagel, 2 eggs 1230-1p: hot dog, cheese, tortilla, 1 piece fruit 5-9p: protein, veggie, +/- starch x small portion per report sometimes dessert, one cookie. no longer eating ice cream. Elevation last night, with rice eating out and had an elevated BG. Reports overall higher BG a few times recently with birthdays and eating out. UTD eye appt UTD dental checking feet daily rotating injection sites May PCP appt scheduled. Physical Activity: Continues walking group most days per week for 45-60 min. On the trip got [phone] steps per day. Self-Monitoring Blood Glucose: Increased hyperglycemia since last visit, however TIR still in goal. Today TIR: 14 day TIR: 2% very high 23% high 75% in range 0% low Avg glucose: 157mg/dl GMI: 7.1% Glucose variability: 23.4% Last 14 day TIR: 14 day TIR: 0% very high 7% high 93% in range 0% low Avg glucose: 139mg/dl GMI: 6.6% Glucose variability: 20% Diabetes Medications: Semglee 30u HS Metformin 750mg XR Jardiance 10mg Pertinent Labs: HgA1c 6.8% 06/2022 7.7% 01/2023 8.1% 08/2023 9.1% 11/2023 8.9% 02/2024 7.2% 11/2024 Past Medical History: (Last Reviewed 12/03/24 @ 15:51 by Trey Krueger MD) Acne Actinic keratosis Chicken pox Colon polyps Hearing deficit Kidney stones Measles Mixed hyperlipidemia Obesity (BMI 30.0-34.9) Plantar warts Type 2 diabetes mellitus with stage 3 chronic kidney disease, with long-term current use of insulin Vision disorder Nutrition Rx: 45g CHo per meal, 15-30g CHO per snack Nutrition Diagnosis: - Predicted excessive Na intake r/t protein choices aeb diet recall Intervention: This participant was very receptive. Provided appropriate educational handouts. Discussed the following topics: Diet changes and impact on BG BG results and trends Varying protein at lunch Physical activity Created SMART goals for patient self-care and success. Goals: Keep glucose tabs on you during vacation as a precaution- not met Try a new protein at lunch- new Follow-up: FERCHO FLORES follow-up in 6 months or sooner prn. Padma Vance RDN, [facility] Certified Diabetes Care and Perianesthesia Nurse P: [phone] Thank you for this referral
== END ==
LOC: DIET 13:03
PROVIDERS: PCP Internal Medicine; Referring Provider Internal Medicine
DX: E11.65 Type 2 diabetes mellitus with hyperglycemia (principal); Z79.4 Long term (current) use of insulin; Z79.84 Long term (current) use of oral hypoglycemic drugs; Z71.3 Dietary counseling and surveillance
CPT/HCPCS: 97803

== ENCOUNTER → 2025-06-09 10:59 | Outpatient (CLI) | payer MEDICARE, OTHER, SELFPAY ==
[2025-06-09 12:42] LABS: Hemoglobin A1C% w Est Avg Glu 6.6 % (4.0-6.0)
[2025-06-09 12:52] LABS: Blood Urea Nitrogen 22 mg/dL (9-20); Calcium 9.6 mg/dL (8.4-10.2); Carbon Dioxide 24 mmol/L (22-32); Chloride 107 mmol/L (98-107); Estimated Glomerular Filt Rate 58 mL/min (>60); Glucose 137 mg/dL (70-99); HEMOLYSIS < 15 (0-50); Potassium 4.5 mmol/L (3.4-5.1); Sodium 138 mmol/L (137-145)
== END ==
PROVIDERS: PCP Internal Medicine; Referring Provider Internal Medicine; Visit Provider Internal Medicine
DX: E11.22 Type 2 diabetes mellitus with diabetic chronic kidney disease (principal); N18.31 Chronic kidney disease, stage 3a; Z79.4 Long term (current) use of insulin
CPT/HCPCS: 36415; 80048; 83036

== ENCOUNTER → 2025-11-25 07:06 | Outpatient (CLI) | payer MEDICARE, OTHER, SELFPAY ==
[2025-11-25 08:06] LABS: Hemoglobin A1C% w Est Avg Glu 6.9 % (4.0-6.0)
[2025-11-25 08:23] LABS: Blood Urea Nitrogen 34 mg/dL (9-20); Calcium 9.5 mg/dL (8.4-10.2); Carbon Dioxide 23 mmol/L (22-32); Chloride 107 mmol/L (98-107); Cholesterol 221 mg/dL (140-199); Estimated Glomerular Filt Rate 52 mL/min (>60); Glucose 120 mg/dL (70-99); HDL Cholesterol 78 mg/dL (40-60); HEMOLYSIS < 15 (0-50); Potassium 4.3 mmol/L (3.4-5.1); Sodium 139 mmol/L (137-145); Triglycerides 88 mg/dL (35-150)
[2025-11-25 10:02] LABS: TSH w/ Reflex to FT4 2.04 uIU/mL (0.47-4.68)
[2025-11-25 10:03] LABS: Prostate Specific Antigen 1.31 ng/mL (0.10-4.00)
== END ==
PROVIDERS: PCP Internal Medicine; Referring Provider Internal Medicine; Visit Provider Internal Medicine
DX: E11.22 Type 2 diabetes mellitus with diabetic chronic kidney disease (principal); E03.9 Hypothyroidism, unspecified; N40.1 Benign prostatic hyperplasia with lower urinary tract symptoms; N13.8 Other obstructive and reflux uropathy; E78.2 Mixed hyperlipidemia; N18.31 Chronic kidney disease, stage 3a; Z79.4 Long term (current) use of insulin
CPT/HCPCS: 36415; 80048; 80061; 83036; 84153; 84443; 84450